=== PATIENT | male | born 1960 | race Caucasian/White ===

== ENCOUNTER 2019-10-01 08:48 | Emergency (ER) | payer OTHER ==
[~2019-10-01] VITALS: Ht 165.1 cm; Wt 95.3 kg
[2019-10-01] MEDS ORDERED: NORCO 5-325 TA1 EAC1 PO (09:20)
[2019-10-01] MEDS ORDERED: BACTRIM DS TAB1 EACH PO (09:20)
[2019-10-01] MEDS ORDERED: KEFLEX500 M1 PO (09:20)
[2019-10-01 09:22] VITALS: BP 157/93
== END 2019-10-01 09:22 | disposition home or self-care (01) ==
LOC: M.ERS 08:48
DX: L03.221 Cellulitis of neck (principal); Z90.49 Acquired absence of other specified parts of digestive tract; Z88.6 Allergy status to analgesic agent